=== PATIENT | female | born 1985 | race Caucasian/White ===

== ENCOUNTER 2018-08-30 19:13 | Emergency (ER) | payer SELFPAY ==
[2018-08-30 19:54] VITALS: BP 117/78
--- NOTE | 2018-08-30 20:22 | ER Document Report ---
ED Medical Screen (RME) - General Chief Complaint: Abdominal Pain Stated Complaint: SHARP ABDOMINAL PAIN Time Seen by Provider: 08/30/18 20:20 Notes: 32 years old female presents today with not having. For 36 days. Meaning she should have had a. 36 days ago but she did not. She has a history of polycystic ovarian syndrome taking not metformin. Denies any abdominal pain or cramps. Denies any other constitutional symptoms. - Related Data Allergies/Adverse Reactions: tramadol Allergy (Verified 08/30/18 19:15) Past Medical History - Social History Chew tobacco use (# tins/day): No Frequency of alcohol use: Occasional Drug Abuse: None Renal/ Medical History: Denies: Hx Peritoneal Dialysis Physical Exam - Vital signs Vitals: Temp Pulse Resp BP Pulse Ox 98.5 F 72 18 117/78 100 08/30/18 19:52 08/30/18 19:52 08/30/18 19:52 08/30/18 19:52 08/30/18 19:52 Course - Vital Signs Vital signs: Temp Pulse Resp BP Pulse Ox 98.5 F 72 18 117/78 100 08/30/18 19:52 08/30/18 19:52 08/30/18 19:52 08/30/18 19:52 08/30/18 19:52
[2018-08-30 20:47] LABS: ABSOLUTE BASOPHILS # (AUTO) 0.1 10^3/uL (0.0-0.2); ABSOLUTE EOSINOPHILS # (AUTO) 0.1 10^3/uL (0.0-0.6); ABSOLUTE LYMPHOCYTES (AUTO) 2.8 10^3/uL (0.5-4.7); ABSOLUTE MONOCYTES (AUTO) 0.7 10^3/uL (0.1-1.4); ABSOLUTE NEUT (AUTO) 5.1 10^3/uL (1.7-8.2); BASOPHILS % (AUTO) 0.8 % (0-2); EOSINOPHILS % (AUTO) 1.3 % (0-6); HEMATOCRIT 44.2 % (36.0-47.0); HEMOGLOBIN 15.1 g/dL (12.0-15.5); MEAN CORPUSCULAR HEMOGLOBIN 31.3 pg (27.0-33.4); MEAN CORPUSCULAR HGB CONC 34.2 g/dL (32.0-36.0); MEAN CORPUSCULAR VOLUME 92 fl (80-97); MONOCYTES % (AUTO) 8.3 % (3-13); PLATELET COUNT 259 10^3/uL (150-450); RED BLOOD COUNT 4.83 10^6/uL (3.72-5.28); RED CELL DISTRIBUTION WIDTH 12.6 % (11.5-14.0); SEGMENTED NEUTROPHILS % (AUTO) 57.6 % (42-78); TOTAL CELLS COUNTED % (AUTO) 100 %; WHITE BLOOD COUNT 8.9 10^3/uL (4.0-10.5)
[2018-08-30 23:13] LABS: APPEARANCE,URINE TURBID; BILIRUBIN,URINE NEGATIVE (NEGATIVE); COLOR,URINE AMBER; GLUCOSE, URINE NEGATIVE (NEGATIVE); KETONES,URINE NEGATIVE (NEGATIVE); LEUKOCYTE ESTERASE,URINE NEGATIVE (NEGATIVE); NITRITE,URINE NEGATIVE (NEGATIVE); PROTEIN,URINE NEGATIVE (NEGATIVE); URINE SPECIFIC GRAVITY 1.023; UROBILINOGEN,URINE NEGATIVE mg/dL (<2.0)
--- NOTE | 2018-08-31 00:31 | ER Document Report ---
ED GI/ - General Chief Complaint: Abdominal Pain Stated Complaint: SHARP ABDOMINAL PAIN Time Seen by Provider: 08/30/18 20:20 Notes: Patient is a 32-year-old female that comes to the emergency department for chief complaint of intermittent sharp lower abdominal/pelvic pain. She states she is over one month late on her last menstrual cycle, she is usually very regular. She states she has a history of PCO S, she states that she stopped her metformin because she thought she might be . She denies any other daily medications. She denies any fever or chills, nausea or vomiting, vaginal discharge, dysuria, flank pain. She denies any current pain. - Related Data Allergies/Adverse Reactions: tramadol Allergy (Verified 08/30/18 19:15) Past Medical History - General Information source: Patient - Social History Smoking Status: Never Smoker Chew tobacco use (# tins/day): No Frequency of alcohol use: Occasional Drug Abuse: None Lives with: Spouse/Significant other Family History: Reviewed & Not Pertinent Patient has suicidal ideation: No Patient has homicidal ideation: No - Medical History Medical History: Negative Renal/ Medical History: Denies: Hx Peritoneal Dialysis Surgical Hx: Negative - Immunizations Immunizations up to date: Yes Hx Diphtheria, Pertussis, Tetanus Vaccination: Yes Review of Systems - Review of Systems Constitutional: No symptoms reported EENT: No symptoms reported Cardiovascular: No symptoms reported Respiratory: No symptoms reported Gastrointestinal: No symptoms reported Genitourinary: No symptoms reported Female Genitourinary: See HPI Musculoskeletal: No symptoms reported Skin: No symptoms reported Hematologic/Lymphatic: No symptoms reported Neurological/Psychological: No symptoms reported Physical Exam - Vital signs Vitals: Temp Pulse Resp BP Pulse Ox 98.5 F 72 18 117/78 100 08/30/18 19:52 08/30/18 19:52 08/30/18 19:52 08/30/18 19:52 08/30/18 19:52 - Notes Notes: GENERAL: Alert, interacts well. No acute distress. HEAD: Normocephalic, atraumatic. EYES: Pupils equal, round, and reactive to light. Extraocular movements intact. ENT: Oral mucosa moist, tongue midline. Oropharynx unremarkable. Airway patent. Nares patent, no nasal septal hematoma, TM's intact. NECK: Full range of motion. Supple. Trachea midline. LUNGS: Clear to auscultation bilaterally, no wheezes, rales, or rhonchi. No respiratory distress. HEART: Regular rate and rhythm. No murmur ABDOMEN: Soft, non-tender. Non-distended. Bowel sounds present in all 4 quadrants. GENITOURINARY: Deferred EXTREMITIES: Moves all 4 extremities spontaneously. No edema, normal radial and dorsalis pedis pulses bilaterally. No cyanosis. BACK: no cervical, thoracic, lumbar midline tenderness. No saddle anesthesia, normal distal neurovascular exam. NEUROLOGICAL: Alert and oriented x3. Normal speech. [cranial nerves II through XII grossly intact]. PSYCH: Normal affect, normal mood. SKIN: Warm, dry, normal turgor. No rashes or lesions noted. Course - Re-evaluation Re-evalutation: CBC unremarkable, hCG quantitative is negative, urinalysis unremarkable. Patient well-appearing on exam with no concerning abdominal findings on exam. I did offer patient an ultrasound to evaluate the ovaries and in general the pelvic area but this was declined. Patient states that she is going home to [place], she just wanted to see if she was and to have an evaluation with recommendations. I recommended a fertility consult with [facility] because of her desire to get , PCO S, and patient also has admitted intermittent dyspareunia suggesting possible endometriosis as well. Patient is very satisfied with this recommendation, requesting to leave. Stable at time of discharge. - Vital Signs Vital signs: Temp Pulse Resp BP Pulse Ox 98.5 F 78 15 117/78 100 08/30/18 19:52 08/31/18 00:51 08/31/18 00:51 08/30/18 19:52 08/30/18 19:52 - Laboratory Result Diagrams: 08/30/18 20:30 Discharge - Discharge Clinical Impression: Missed period, Lower abdominal pain Condition: Stable Disposition: HOME, SELF-CARE Additional Instructions: You are not . Your complete blood counts and urine did not show any concerning findings. Because of your missed cycle, PCOS, and fertility concerns I recommend [facility] follow-up with fertility consult. Return if you worsen including severe pain, vomiting, fever, or any other concerning or worsening symptoms.
== END 2018-08-31 00:53 | disposition home or self-care (01) ==
LOC: ER 19:13
DX: N91.2 Amenorrhea, unspecified (principal); R10.30 Lower abdominal pain, unspecified; R10.2 Pelvic and perineal pain
CPT/HCPCS: 36415; 81001; 84702; 85025; 99284